=== PATIENT | female | born 1980 | race Caucasian/White ===

== ENCOUNTER 2022-07-17 16:15 | Inpatient (IN) | payer SELFPAY ==
[2022-07-17] VITALS (68 sets, daily range): BP systolic 118–153; BP diastolic 63–82; PULSE 83–104; RESP 16–18; TEMP 36.2–36.9; O2SAT 96–99; BMI 33.7
[2022-07-17] MEDS: Lactated Ringers 1,000 ML 999 ML IV (16:50)
[2022-07-17 17:08] LABS: Absolute Lymphocyte Count 1.66 X10^3/uL (0.83-4.51); Absolute Neutrophil Count 8.3 X10^3/uL (2.0-7.7); Basophil# 0.01 X10^3/uL; Basophil% 0.1 % (0-1); Eosinophil# 0.09 X10^3/uL; Eosinophils% 0.8 % (0-5); Hematocrit 40.4 % (37-47); Hemoglobin 14.2 g/dL (12.0-15.0); Lymphocyte # 1.66 X10^3/ul (0.83-4.51); Lymphocyte % 15.4 % (19-41); Mean Corp Hgb Conc 35.1 g/dL (32-36); Mean Corpuscular Hgb 33.3 pg (27.0-32.0); Mean Corpuscular Volume 94.8 fL (81-99); Mean Platelet Vol. 11.2 fl (6.2-12.0); Monocyte# 0.68 X10^3/uL; Monocyte% 6.3 % (0-10); NRBC Flagged by Analyzer 0 % (0-5); Neutrophil # 8.27 X10^3/uL (2.7-7.7); Neutrophil % 76.8 % (47-70); Platelet Count 132 K/mm3 (150-450); RBC Distribution Width CV 15.7 % (11.6-14.6); RBC Distribution Width SD 54.5 fl (35.1-43.9); Red Blood Count 4.26 M/mm3 (4.2-5.4); White Blood Count 10.8 K/mm3 (4.4-11.0)
--- NOTE | 2022-07-17 17:24 | PCM.HP.BLA ---
History and Physical Date of Admission: 07/17/22 Chief complaint: Nonreassuring testing History present illness: 42-year-old G 12 P 11 at 40 weeks and 6 days with NIRALI: 07/11/2022 arrives from [facility] by care of direct entry midwife. Patient for standard visit today NST performed nonreactive and BPP 2/8. Sent here for evaluation. Patient arrives asymptomatic, overall feels some movement but not as much as usual. Denies headache, vision change, chest pain, shortness of breath, nausea vomit, right upper quadrant pain. is complicated by grand multipara, AMA Obstetric history: Patient with a history of 11 vaginal deliveries at term uncomplicated per patient Past medical history: None Medications: None Past surgical history: None Allergies: No known drug allergies Family history: Denies history DVT or PE Social history: Denies smoking, alcohol use, drug use Review of systems: Besides above pertinent positives a full review of systems was performed and found to be negative Physical exam: Vitals: Blood pressure 140/82 pulse 93 General: Normal-appearing no acute distress HEENT: Normocephalic atraumatic no cervical of adenopathy Cardiac/respiratory: No use of accessory muscles, nonlabored breathing Abdomen: Soft, nontender, gravid Extremities: No peripheral edema normal peripheral pulses Psych: Normal affect and demeanor nonpressured speech. Bedside ultrasound: Cephalic, SANDRA 0. 0 tone 0 movement 0 breathing Labs: White blood cell count 10.8 hemoglobin 14.2 hematocrit 40.4% platelets 132 Assessment plan: 42-year-old G 12 P 11 at 40 weeks and 6 days arrives from [facility] by care of direct entry midwife noted to have nonreassuring heart tones with absent variability to minimal variability no accelerations and no reaction to acoustic stim. Found in office to be 2 to 3 cm dilated, remote from delivery. Bedside ultrasound with BPP 0 out of 8 and nonreactive NST 0 out of 10. Educated patient on findings and discussed need for section risk benefits alternatives discussed. Patient state understanding and wished to proceed. All questions were answered and consent was signed. 2 g Ancef and 500 mg of azithromycin. For now surgical team and anesthesia along with nitroglycerin nitrator operator batch were called.
[2022-07-17] MEDS: Acetaminophen 500 MG Tablet 1000 MG PO (17:40)
[2022-07-17] MEDS: Sodium Citrate/Citric Acid 30 ML UDC PO (17:40)
[2022-07-17] MEDS: Cefazolin 2 GM in 0.9% Normal Saline 100 ML IV (17:43)
--- NOTE | 2022-07-17 18:38 | OP.PCM_ITS ---
Details Operative Information Date of Procedure: 07/17/22 Pre-Operative Diagnosis: Term, nonreassuring testing Post-Operative Diagnosis: Term, nonreassuring testing tinsmith apprentice #1: Jaylin Knapp Findings Description of Procedure: Procedure: Primary low transverse section Via Pfannenstiel incision Surgeon: Galdino Navarro MD Anesthesia: Spinal EBL: 600 cc IV fluids 500 cc Urine output: 600 cc Complications: None Specimen: Placenta and cord gases Findings: Female infant in vertex position Apgars 2/7/7. Normal uterus, tubes, and ovaries. Consent: Patient arrived from [facility] under care of a fun house operator with nonreactive NST and BPP 2 out of 8 [facility] with NST nonreactive and SANDRA 0. Patient elected for primary section Via Pfannenstiel incision. Patient understands risk of the procedure include but are not limited to visceral or vascular injury, prolonged hospitalization, blood loss need for transfusion, reoperation. Patient state understanding and wished to proceed. All questions were answered and consent was signed. Procedure: Patient was brought back to the OR where spinal anesthesia was found to be adequate. 2 g of Ancef and 500 mg of azithromycin were given for infection prophylaxis. Patient was prepared and draped in a supine position with leftward tilt. A Pfannenstiel incision was made at the skin with a scalpel. The incision was carried down to the fascia with a scalpel. The fascia was excised and extended laterally. Rectus muscle was dissected at the midline down to the level of the pubic symphysis. Preperitoneal fatty tissue was noted and peritoneum was entered bluntly. Peritoneum was extended superiorly and inferiorly with good visualization of bladder. Vesicouterine peritoneum was identified and low transverse hysterotomy was made. Hand was placed into the incision and gentle fundal pressure was applied once the head was brought into the incision and the bladder blade was removed. Head and shoulders were delivered with ease. Cord was cut and clamped. Baby is handed off to nursing. Placenta was delivered via cord traction and fundal massage. IV oxytocin was initiated in order to facilitate uterine contractions. Uterus was exteriorized and wiped out with dry laparotomy sponge in order to remove remaining placental membranes. Uterus was closed in a continuous running fashion. Zmyoyu-yo-phima sutures were used for hemostasis. Sandy was placed over the incision and good hemostasis was noted. Uterus was placed back into the abdominal cavity and good hemostasis was noted. Fascia was closed in a continuous running fashion with PDS suture. Subcutaneous irrigation was performed and good hemostasis was noted. Skin was closed in a subcuticular fashion. All counts were correct x2. Patient tolerated the procedure well and was brought to recovery in a stable condition.
[2022-07-17] MEDS: Oxytocin 30 units/NS 500 ml 30 UNITS/500 ML IV.SOLN 167 UNITS IV (19:00)
[2022-07-17 19:53] LABS: Mucous, Urine 0 SEEN /hpf (<or=2+)
[2022-07-17] MEDS: Ketorolac 30 MG/ML Syringe IV (19:56)
[2022-07-17 19:58] LABS: Color, Urine Yellow (Yellow); Glucose, Dipstick Normal (Normal); Ketone-Dipstick Negative (Negative); Leukocyte Esterase-Dipstick 25 /ul (Negative); Nitrite-Dipstick Negative (Negative); Occult Blood-Urine 150 /ul (Negative); Protein-Dipstick 100 mg/dl (Negative); Urine Bilirubin Dipstick Negative (Negative); Urine Clarity Sl. Cloudy (Clear); Urine Urobilinogen Normal (Normal); Urine pH 6.5 (5.0 - 8.0)
[2022-07-17 20:04] LABS: Squamous Epithelial Cells - UA 5-10 SEEN /hpf (5-10)
[2022-07-17 20:05] LABS: Red Blood Cells-Urine 0-5 SEEN /hpf (0-5)
[2022-07-17 20:06] LABS: Calcium Oxalate Crystals Ur 1+ /hpf (<or=2+); White Blood Cells 0-5 SEEN /hpf (0-5)
[2022-07-17 20:07] LABS: Amphetamine Urine VISTA NEGATIVE (<1000 ng/mL); Bacteria 1+ /hpf (None Seen); Barbiturate Urine VISTA NEGATIVE (< 200 ng/mL); Benzodiazepine Urine VISTA NEGATIVE (< 200 ng/mL); Cocaine Urine VISTA NEGATIVE (< 300 ng/mL); Ecstacy Urine VISTA NEGATIVE (< 500 ng/mL); Methadone Urine VISTA NEGATIVE (< 300 ng/mL); PCP Urine VISTA NEGATIVE (< 25 ng/mL); THC Urine VISTA NEGATIVE (< 50 ng/mL); Vista UDS pH Range 6
[2022-07-17] MEDS: Lactated Ringers 1,000 ML 100 ML IV (22:17)
[2022-07-17 22:24] LABS: HIV - WCH Non-Reactive (Nonreactive); Hepatitis B Surface Antigen Non-Reactive (Nonreactive); Hepatitis C Antibody Non-Reactive (Nonreactive)
--- NOTE | 2022-07-17 23:01 | NURSING ---
This IBCLC met with parents after delivery in mother's hospital room. Baby just left with the transport team to [facility]. First pumping session started at 22:00. Pumped for 20mins and collected 10cc of colostrum. Mother educated on how to assemble double pump supplies, how to work the pump, how to clean her pump parts, label her storage containers of milk, and the importance of pumping Q3hrs for 20minutes. Mother tolerated the first pumping session well. Size 25mm flanged fit appropriately, but due to elastic nipple tissue, FlexiShields were provided and mother plans to use them at her next pumping session. Mother verbalizes understanding of the pumping plan. We will continue to monitor and support her needs.
[2022-07-18] VITALS (7 sets, daily range): BP systolic 116–136; BP diastolic 59–84; PULSE 84–105; RESP 14–18; TEMP 36.4–37.1; O2SAT 95–98
[2022-07-18] MEDS: Acetaminophen 500 MG Tablet 1000 MG PO ×3 (00:15→12:05)
[2022-07-18] MEDS: Ketorolac 30 MG/ML Syringe IV ×2 (01:49→08:07)
[2022-07-18] MEDS: 0.9% Saline Lock 10 ML Syringe IV ×2 (01:50→08:06)
[2022-07-18 05:01] LABS: Hematocrit 38.3 % (37-47); Mean Corp Hgb Conc 33.9 g/dL (32-36); Mean Corpuscular Hgb 32.5 pg (27.0-32.0); Mean Corpuscular Volume 95.8 fL (81-99); Mean Platelet Vol. 11.1 fl (6.2-12.0); Platelet Count 115 K/mm3 (150-450); RBC Distribution Width CV 15.9 % (11.6-14.6); RBC Distribution Width SD 55.6 fl (35.1-43.9); White Blood Count 11.3 K/mm3 (4.4-11.0)
[2022-07-18] MEDS: Enoxaparin 40 MG/0.4 ML Syringe SC (06:11)
--- NOTE | 2022-07-18 07:29 | DCINST_ITS ---
Discharge Instructions Diet Discharge Diet: No restrictions Activity Discharge Activity: Return to Normal Activity, May Drive and May Shower May resume sexual activity in: 4-6 weeks Lifting Restrictions: No lifting over 25 pounds for 2 to 3 weeks Dressing / Incision Call your doctor if your incision/area has: Continuous Slow Oozing and Foul Smelling Discharge Call your doctor if you observe: Fever of 101 or Higher, Shortness of breath and Chest pain Follow Up Care Please Follow Up With: Galdino Navarro MD When: 2 weeks postoperatively Test Results: Test results from this visit will be discussed in further detail at your follow- up appointment, if applicable. Discharge Plan Admission Admit Date/Time: 07/17/22 16:15 Primary Reason for Your Visit: Attending Provider: Galdino Navarro Primary Care Provider: Zhang Brown Discharge Orders/Prescriptions Prescriptions: New oxycodone 5 mg Tablet 5 mg PO Q6H PRN PRN (Reason: Pain Score 7-10) 4 Days Qty: 16 0RF Continued evening primrose oil 500 mg Capsule calcium carbonate-vitamin D3 600 mg-5 mcg (200 unit) Tablet 1 tab PO DAILY [id number] 1 mg Tablet 1 tab PO Referrals / Follow Up: Zhang Brown DO [Primary Care Provider] - Disposition Disposition (needs filled in before D/C Order can be placed): Home, Self Care
--- NOTE | 2022-07-18 07:30 | PCM.PN.OB ---
Subjective Subjective No overnight complaints. Pain well controlled. Objective Data Objective Data Vital Signs: Vital Signs Temp Pulse Resp BP Pulse Ox O2 Del Method 97.5 F L 99 18 116/59 L 97 Room Air 07/18/22 03:10 07/18/22 05:01 07/18/22 05:01 07/18/22 03:10 07/18/22 05:01 07/18/22 05:01 Oxygen Delivery Method Room Air Weight: 202 lb 13.204 oz Body Mass Index (BMI) 33.7 Intake & Output: Intake and Output for Last 24 Hours 07/16/22 07/17/22 07/18/22 23:59 23:59 23:59 Intake Total 1865 / 1865 793.33 / 793.33 Output Total 420 / 420 550 / 550 Balance 1445 / 1445 243.33 / 243.33 Lab / Micro Data Result Diagrams: 07/18/22 04:46 Labs: Laboratory Results - last 24 hr 07/17/22 16:50: WBC 10.8, RBC 4.26, Hgb 14.2, Hct 40.4, MCV 94.8, MCH 33.3 H, MCHC 35.1, RDW Std Deviation 54.5 H, RDW Coeff of Kael 15.7 H, Plt Count 132 L, MPV 11.2, Immature Gran % (Auto) 0.600, Neut % (Auto) 76.8 H, Lymph % (Auto) 15.4 L, [place] % (Auto) 6.3, Eos % (Auto) 0.8, Baso % (Auto) 0.1, Absolute Neuts (auto) 8.3 H, Absolute Lymphs (auto) 1.66, Nucleated RBC % 0 07/17/22 16:50: Urine Color Yellow, Urine Clarity Sl. Cloudy, Urine pH 6.5, Ur Specific [place] 1.020, Urine Protein 100 H, Urine Glucose (UA) Normal, Urine Ketones Negative, Urine Occult Blood 150 H, Urine Nitrite Negative, Urine Bilirubin Negative, Urine Urobilinogen Normal, Ur Leukocyte Esterase 25 H, Urine RBC 0-5 SEEN, Urine WBC 0-5 SEEN, Ur Squamous Epith Cells 5-10 SEEN, Calcium Oxalate Crystal 1+, Urine Bacteria 1+, Urine Mucus 0 SEEN 07/17/22 16:50: Blood Type O NEGATIVE, Antibody Screen NEGATIVE 07/17/22 16:50: Urine Opiates Screen NEGATIVE, Urine Methadone Screen NEGATIVE, Ur Barbiturates Screen NEGATIVE, Ur Phencyclidine Scrn NEGATIVE, Ur Amphetamines Screen NEGATIVE, MDMA (Ecstasy) Screen NEGATIVE, U Benzodiazepines Scrn NEGATIVE, Urine Cocaine Screen NEGATIVE, U Cannabinoids Screen NEGATIVE, Ur Drug Screen Comment 07/17/22 16:50: Hep Bs Antigen Non-Reactive, Hepatitis C Antibody Non-Reactive, HIV 1&2 Antibody Non-Reactive 07/17/22 20:05: Screen NEGATIVE, Baby's Blood Type A POSITIVE, Baby's ABRAHAM NEGATIVE 07/18/22 04:46: WBC 11.3 H, RBC 4.00 L, Hgb 13.0, Hct 38.3, MCV 95.8, MCH 32.5 H, MCHC 33.9, RDW Std Deviation 55.6 H, RDW Coeff of Kael 15.9 H, Plt Count 115 L, MPV 11.1 Micro: Microbiology 07/17/22 16:55 Nasal Secretion SARS-CoV-2 Antigen (Rapid) - Final Physical Exam Const alert, oriented x3, no apparent distress, average body habitus, healthy appearing and well nourished HEENT normocephalic and moist oral mucous membranes Eyes PERRL Resp normal respiratory effort, no retractions and no use of accessory muscles GI GI Narrative: Soft, nontender, bandage clean dry and intact Extremity normal to inspection, full ROM and no clubbing, cyanosis or edema Skin no rashes or lesions noted Neuro moves all extremities and no focal motor deficits Psych mental status grossly normal, affect normal, speech normal and activity/motor behavior normal Assessment & Plan (1) delivery delivered: PLAN: Postop day 1 status post primary section for nonreassuring testing. Breast-feeding. Pain well controlled. Wishes to discharge home today, okay to discharge home today
--- NOTE | 2022-07-18 08:00 | NURSING ---
0800- RN IBCLC in room to touch base with patient before discharge. She reports pumping every 3 hours. States she got the most with her very first pumping session, but has gotten less colostrum out since. Education given on how this is normal and to keep with frequency of pumping. Pt. verbalizes understanding. Denies questions about the breast pump and states that the hand pump has already been reviewed with her. Pt. educated to take home pump parts and cleaning tub/brush when she is discharged. Pt. reports she stopped using the Flexi-Joe as they caused more discomfort with pumping and she feels that it feels and goes better with just the bare flanges. brochure pulled from pt's folder and reviewed with family, pointing out phone number for if any issues arise after discharge. Pt. reports things are going well and that the only complication history she has is mastitis with her oldest 2-3 children, but no complications with any of the others during . No questions or concerns from family at this time. Encouragement and support given.
[2022-07-18] MEDS: Senna/Docusate Sodium 1 Tablet PO (08:06)
[2022-07-18 08:29] LABS: Rubella IgG Reactive (Nonreactive)
== END 2022-07-18 12:25 | disposition home or self-care (01) | DRG 788 ==
PROVIDERS: Admitting Provider Obstetrics & Gynecology; PCP Family Medicine; Visit Provider Obstetrics & Gynecology
DX: O48.0 Post-term pregnancy (principal); O76 Abnormality in fetal heart rate and rhythm complicating labor and delivery; Z20.822 Contact with and (suspected) exposure to COVID-19; Z3A.40 40 weeks gestation of pregnancy; Z37.0 Single live birth
CPT/HCPCS: 59050; 76815; 80307; 81001; 85025; 85027; 85461; 86703; 86762; 86803; 86850; 86900; 86901; 87340; 87426; 90384; 99218; J7120; A4216; G0378; J2790